=== PATIENT | male | born 1965 ===

== ENCOUNTER 2018-01-26 07:56 | Day surgery (SDC) | payer OTHER ==
[2018-01-26] MEDS ORDERED: Bupivacaine 0.5%/Epi 1:200,000 (10 ML SOL) ONE (08:47)
[2018-01-26] MEDS: ceFAZolin 1 gm in NS 2 GM/200 ML BAG IVPB ONE ×2 (08:49→09:44)
[2018-01-26] MEDS ORDERED: Midazolam 2 MG/2 ML VIAL ONE (09:37)
[2018-01-26] MEDS ORDERED: Propofol 10 mg/ml Inj (20 ML) ONE (09:37)
[2018-01-26] MEDS ORDERED: Neostigmine Methylsulfate 3mg/3ml Syringe IV ONE (10:38)
--- NOTE | 2018-01-26 11:17 | PCM.SURG1 ---
Surgeon's Initial Post Op Note - Surgeon's Notes Surgeon: Dr. Cope Pill Packer: Dr. Ledesma, PGY-3, David Ross MS3 Type of Anesthesia: General Endo Anesthesia Administered By: Dr. Kapoor Pre-Operative Diagnosis: Incisional Hernia Operative Findings: See operative report Post-Operative Diagnosis: Same Operation Performed: Incisional Hernia repair with mesh, lysis of adhesions Specimen/Specimens Removed: Old scar Estimated Blood Loss: EBL {In ML}: 15 Blood Products Given: N/A Drains Used: Martin Eaton Post-Op Condition: Good Date of Surgery/Procedure: 01/26/18 Time of Surgery/Procedure: 11:17
[2018-01-26] MEDS ORDERED: Oxycodone/Acetaminophen 5/325 mg Tab PO PRN (11:21)
[2018-01-26] MEDS ORDERED: HYDROmorphone 0.5 mg/0.5 ml ISec IVP PRN (11:22)
[2018-01-26] MEDS ORDERED: Lactated Ringer's 1,000 ML IV SCH (11:30)
[2018-01-26] MEDS ORDERED: HYDROmorphone 1 mg/ml ISec ONE (11:55)
[2018-01-26] MEDS ORDERED: HYDROmorphone 1 mg/ml ISec IVP PRN (12:15)
[2018-01-26 13:23] VITALS: RESP 18
[2018-01-26 15:24] VITALS: BP 115/60; PULSE 67; TEMP 98.9; O2SAT 96
--- NOTE | 2018-01-27 08:41 | OP ---
DATE: 01/26/2018 PREOPERATIVE DIAGNOSIS: Incisional hernia incarcerated. POSTOPERATIVE DIAGNOSIS: Incisional hernia incarcerated. SURGEON: Jigar Cope MD PROCEDURE PERFORMED: Repair with ProLite mesh. FINDINGS: There is some weakness in the abdominal closure on the lower end of the old stab incision. There are two defects in the fascia with incarcerated properitoneal fat. DESCRIPTION OF PROCEDURE: Under general anesthesia, the patient was prepared and draped in the usual sterile fashion. The old scar was then excised. The dissection was carried all the way down to the fascia level down to the hernia sac. The hernia was dissected all the way down to the fascial level mobilized at the neck and then the two of them was reduced, the two hernias . After further reduction of the incarcerated properitoneal fat, the defect in the fascia was closed especially with multiple interrupted sutures of #1 Prolene and then a mesh was fashioned to fit the exposed fascia suturing it to the outside with multiple interrupted sutures of 0 Prolene. Area was irrigated with copious amount of saline solution. Irrigating fluid was suctioned out. Drain was left in place and the wound closed in layers. Estimated blood loss about 15 mL. The patient tolerated the procedure quite well and left the operating room in good condition. Jigar Cope MD
== END 2018-01-26 15:20 | disposition home or self-care (01) ==
LOC: C.SDS 07:56
PROVIDERS: ATTEND Surgery
DX: K43.0 Incisional hernia with obstruction, without gangrene (principal); L90.5 Scar conditions and fibrosis of skin
CPT/HCPCS: 11406; 49561; 49568; 88305; C1781; J0690; J1170; J2250; J2704; J2710; J3010

== ENCOUNTER 2018-05-21 18:00 | Emergency (ER) | payer SELFPAY ==
[2018-05-21 18:20] VITALS: RESP 18
[2018-05-21] MEDS ORDERED: Naproxen 550 mg Tab PO STA (18:23)
[2018-05-21] MEDS ORDERED: Naproxen 550 mg Tab PO ONE (18:29)
--- NOTE | 2018-05-21 18:57 | C.PDOC ---
Time Seen by Provider: 05/21/18 18:16 Chief Complaint (Nursing): Cough, Cold, Congestion History Per: Patient Onset/Duration Of Symptoms: Days (1) Current Symptoms Are (Timing): Still Present Associated Symptoms: Fever (subjective), Sore Throat, Cough, Sputum Severity: Moderate Additional History Per: Prior Records Past Medical History Reviewed: Historical Data, Nursing Documentation, Vital Signs Vital Signs: Last Vital Signs Temp 98.7 F 05/21/18 18:04 Pulse 99 H 05/21/18 18:04 Resp 18 05/21/18 18:19 BP 144/86 05/21/18 18:04 Pulse Ox 96 05/21/18 18:57 - Medical History PMH: No Chronic Diseases Surgical History: Cholecystectomy, Hernia Repair Family History: States: Unknown Family Hx - Social History Hx Tobacco Use: No Hx Alcohol Use: No Hx Substance Use: No - Immunization History Hx Tetanus Toxoid Vaccination: No Hx Influenza Vaccination: No Hx Pneumococcal Vaccination: No Review Of Systems Except As Marked, All Systems Reviewed And Found Negative. Constitutional: Positive for: Malaise ENT: Positive for: Throat Pain. Negative for: Ear Pain, Nose Congestion Cardiovascular: Negative for: Chest Pain Respiratory: Positive for: Cough, Sputum. Negative for: Hemoptysis Gastrointestinal: Negative for: Vomiting, Abdominal Pain, Diarrhea Musculoskeletal: Negative for: Neck Pain Skin: Negative for: Rash Neurological: Negative for: Weakness, Numbness Physical Exam - Physical Exam Appears: Non-toxic, No Acute Distress Skin: Normal Color, Warm, Dry, No Rash Head: Atraumatic, Normacephalic Eye(s): bilateral: Normal Inspection, PERRL, EOMI Throat: Erythema, No Exudate, No Drooling, No Mass Neck: Normal ROM, Supple Cardiovascular: Rhythm Regular Respiratory: Normal Breath Sounds, No Accessory Muscle Use Gastrointestinal/Abdominal: Soft, No Tenderness Back: No CVA Tenderness Extremity: Normal ROM, No Pedal Edema, No Calf Tenderness Neurological/Psych: Oriented x3, Normal Speech, Normal Motor, Normal Sensation ED Course And Treatment O2 Sat by Pulse Oximetry: 96 Pulse Ox Interpretation: Normal Reassessment Condition: Improved Disposition Counseled Patient/Family Regarding: Studies Performed, Diagnosis, Need For Followup, Rx Given - Disposition Referrals: Raegan Mar MD [Staff Provider] - Disposition: HOME/ ROUTINE Disposition Time: 19:16 Condition: STABLE Additional Instructions: Follow up with your doctor. Return to the ER if you develop high fever, shortness of breath, lethargy, worsening of symptoms or if you have any other concerns. Prescriptions: Albuterol HFA [Ventolin HFA 90 mcg/actuation (8 g)] 2 puff IH Q4 PRN #1 unit PRN Reason: Cough And Congestion Benzonatate 200 mg PO TID PRN #15 capsule PRN Reason: Cough Naproxen [Naprosyn] 1 tab PO BID PRN #20 tab PRN Reason: Pain Instructions: Upper Respiratory Infection (ED) - Clinical Impression Clinical Impression: Upper respiratory infection
[2018-05-21 19:29] VITALS: BP 126/73; PULSE 76; TEMP 98; O2SAT 98
== END 2018-05-21 19:29 | disposition home or self-care (01) ==
LOC: C.ER 18:00
DX: J06.9 Acute upper respiratory infection, unspecified (principal)

== ENCOUNTER 2018-10-26 09:47 | Emergency (ER) | payer OTHER ==
--- NOTE | 2018-10-26 10:07 | C.PDOC ---
History Of Present Illness 53 y/o male with PMH of herniated lumbar discs presents to ED c/o lower back pain (L>R) x 6 days. 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 Pain is worse with bending and movement, making it difficult to bend over to tie his shoes. Pt has experienced pain like this before and has received MRI and XR of the lumbar spine in the past that revealed several herniated discs and degenerative changes per patient. States this feels like his typical back pain exacerbations. Has been taking OTC Alieve for pain without relief, last dose 3am. Ambulated into ED without difficulty. Denies fever, chills, abdominal pain, N/V, urinary symptoms, bowel/bladder incontinence, numbness, paresthesias, weakness, or any other associated symptoms. PMD: Dr. Mar Time Seen by Provider: 10/26/18 10:10 Chief Complaint (Nursing): Back Pain History Per: Patient History/Exam Limitations: no limitations Onset/Duration Of Symptoms: Days Current Symptoms Are (Timing): Still Present Past Medical History Reviewed: Historical Data, Nursing Documentation, Vital Signs Vital Signs: Last Vital Signs Temp 98.1 F 10/26/18 09:59 Pulse 71 10/26/18 09:59 Resp 18 10/26/18 09:59 BP 121/74 10/26/18 09:59 Pulse Ox 100 10/26/18 09:59 JOSE Report Viewed: Yes - Medical History PMH: Gall Bladder Disease Denies: Chronic Kidney Disease Surgical History: Cholecystectomy, Hernia Repair Family History: States: Unknown Family Hx - Social History Hx Tobacco Use: No Hx Alcohol Use: Yes Hx Substance Use: No - Immunization History Hx Tetanus Toxoid Vaccination: No Hx Influenza Vaccination: No Hx Pneumococcal Vaccination: No Review Of Systems Except As Marked, All Systems Reviewed And Found Negative. Constitutional: Negative for: Fever, Chills Eyes: Negative for: Vision Change ENT: Negative for: Nose Congestion Cardiovascular: Negative for: Chest Pain, Palpitations, Light Headedness Respiratory: Negative for: Cough, Shortness of Breath, Hemoptysis Gastrointestinal: Negative for: Nausea, Vomiting, Abdominal Pain, Diarrhea, Constipation, Rectal Pain Genitourinary: Negative for: Dysuria, Frequency Musculoskeletal: Positive for: Back Pain. Negative for: Neck Pain, Shoulder Pain, Leg Pain Skin: Negative for: Rash, Bruising Neurological: Negative for: Weakness, Numbness, Headache, Dizziness, Other (paresthesias) Physical Exam - Physical Exam Appears: Well, Non-toxic, No Acute Distress Skin: Normal Color, Warm, Dry Head: Atraumatic, Normacephalic Eye(s): bilateral: Normal Inspection, PERRL, EOMI Nose: Normal Oral Mucosa: Moist Neck: Normal, Normal ROM, Trachea Midline, No Midline Cervical Tenderness Lymphatic: Normal Exam Chest: Symmetrical Cardiovascular: Rhythm Regular Respiratory: Normal Breath Sounds Gastrointestinal/Abdominal: Normal Exam, Bowel Sounds (normoactive), Soft, No Tenderness Back: Normal Inspection, No CVA Tenderness, No Vertebral Tenderness, Decreased ROM (lumbar spine, secondary to pain), No Muscle Spasm, No Paraspinal Tenderness, Straight Leg Raising (positive bilaterally) Extremity: Normal ROM, No Tenderness, No Calf Tenderness, Capillary Refill (<3s), No Swelling Extremity: Bilateral: Atraumatic, No Pedal Edema, Normal Color And Temperature, Normal ROM Pulses: Left Radial: Normal, Right Radial: Normal Neurological/Psych: Oriented x3, Normal Speech, Normal Cognition, Normal Motor, Normal Sensation Gait: Steady ED Course And Treatment O2 Sat by Pulse Oximetry: 100 Medical Decision Making Medical Decision Making: Impression: 53 y/o male with h/o chronic back pain and herniated lumbar discs presents c/o back pain x 6 days after 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 Denies abdominal pain, N/V, urinary symptoms, incontinence, saddle anesthesia, numbness, weakness, paresthesias. No midline tenderness, CVA tenderness, or abdominal tenderness or pulsatile mass on exam. Initial Plan: * Toradol * Lidoderm * Reassess and Disposition Patient reports decreased pain after medications. Requesting discharge home. Diagnostic testing results and plan of care discussed with patient. Strict instructions given regarding prescription use, importance of followup, and signs/symptoms to return to ER including saddle anesthesia, incontinence, worsening pain, numbness, paresthesias, or any other new/worsening symptoms. Pt verbalized understanding of discussion. Patient is A&Ox3, ambluating with steady gait, with vital signs stable for discharge. Disposition Counseled Patient/Family Regarding: Diagnosis, Need For Followup, Rx Given - Disposition Referrals: [facility] [Outside] [facility] [place] [Outside] Rosalinda Lowery MD [Staff Provider] - Disposition: HOME/ ROUTINE Disposition Time: 11:00 Condition: IMPROVED Additional Instructions: Take naproxen daily with food as needed for pain Take flexeril every 8 hours as needed for pain, do not take before driving or operating heavy machinery Use lidoderm patches on painful area daily, 12 hours on, 12 hours off Rest, no strenuous activity Followup with orthopedic doctor within 2 days Followup with primary doctor within 2 days Return to ER with any new/worsening symptoms Prescriptions: Cyclobenzaprine [Flexeril] 5 mg PO Q8H PRN #12 tab PRN Reason: Pain, Moderate (4-7) Lidocaine 5% [Lidoderm] 1 ea TD DAILY #30 patch Naproxen [Naprosyn] 500 mg PO DAILY PRN #14 tablet PRN Reason: Pain, Moderate (4-7) Instructions: Low Back Pain in Adults, Sciatica Exercises Forms: [facility] ([place]), Work Excuse - Clinical Impression Clinical Impression: Low back pain
[2018-10-26] MEDS ORDERED: Lidocaine 5% Patch TD STA (10:27)
[2018-10-26] MEDS ORDERED: Lidocaine 5% Patch TD ONE (10:38)
[2018-10-26 12:57] VITALS: BP 121/74; PULSE 71; RESP 18; TEMP 98.1; O2SAT 100
== END 2018-10-26 11:05 | disposition home or self-care (01) ==
LOC: C.ER 09:47
DX: M54.5 Low back pain (principal)
CPT/HCPCS: 96372; 99283; J1885